=== PATIENT | female | born 1970 | race Caucasian/White ===

== ENCOUNTER 2017-11-01 05:41 | Emergency (ER) | payer OTHER ==
[~2017-11-01] VITALS: Ht 177.8 cm; Wt 65.9 kg
[~2017-11-01 05:41] MED LIST: AZEL205. NS; CHOL500045 PO; FLUO20CA8 PO; MULT-658 PO
[2017-11-01] MEDS ORDERED: ALBUTEROL/IPRATROPIUM 2.5MG/0.5MG, 3 ML NEB ONE (06:30)
[2017-11-01 06:41] VITALS: BP 132/78
[2017-11-01] MEDS ORDERED: ALBUTEROL/IPRATROPIUM 2.5MG/0.5MG, 3 ML ONE (06:44)
[2017-11-01] MEDS ORDERED: LORazepam 2 MG/ML, 1ML ONE (07:25)
[2017-11-01] MEDS ORDERED: LORazepam 2 MG/ML, 1ML IVPush ONE (07:30)
[2017-11-01] MEDS ORDERED: LORazepam 1MG TABLET ONE (07:38)
[2017-11-01] MEDS ORDERED: LORazepam 1MG TABLET PO ONE (08:00)
== END 2017-11-01 09:06 | disposition home or self-care (01) ==
LOC: ED 08:55
DX: J98.01 Acute bronchospasm (principal); J10.1 Influenza due to other identified influenza virus with other respiratory manifestations; B97.89 Other viral agents as the cause of diseases classified elsewhere
CPT/HCPCS: 71045; 93005; 94640; 99284; J7512; J7620